=== PATIENT | male | born 1965 | race Caucasian/White ===

== ENCOUNTER 2017-11-17 08:24 | Emergency (ER) | payer OTHER ==
[~2017-11-17] VITALS: Ht 185.4 cm; Wt 88.5 kg
[~2017-11-17 08:24] MED LIST: ATENOLOL50 M1 PO; CALCIUM + D 6001 TAB PO; CIPRO 500MG TA500 MG PO; FAMOTIDINE20 M1 PO; FLOMAX(MONOGRA0.4 MG PO; LISINOPRIL-HCT1 EAC1 PO; LISINOPRIL20 M1 PO; LISINOPRIL20 MG PO; MAGNESIUM OXID400 M1 PO; MEN'S MULTIVI200 MCG PO; MOTRIN800 MG PO; MULTIVITAMIN1 TAB PO; OMEPRAZOLE20 M2 PO; PERCOCET 325 MG1 TA2 PO; VITAMIN C500 M3 PO; ZOFRAN 4 MG TABL4 MG PO
--- NOTE | 2017-11-17 08:27 | ED SYNCOPE COMPLAINT ---
History of Present Illness General Chief Complaint: Syncope and Near-Syncope Stated Complaint: SYNCOPE Source: patient, RAPID RESPONSE TEAM Exam Limitations: clinical condition Vital Signs & Intake/Output Vital Signs & Intake/Output Vital Signs Date Time Temp Pulse Resp B/P B/P Pulse O2 O2 Flow FiO2 Mean Ox Delivery Rate 11/17 1040 97.8 90 18 145/97 99 Room Air 11/17 1035 90 145/97 11/17 0835 99 Room Air 11/17 0829 96.2 80 18 140/96 99 Room Air Allergies Coded Allergies: Sulfa (Sulfonamide Antibiotics) (Severe, RASH 08/26/16) Reconcile Medications Alprazolam 0.5 MG TABLET 1 TAB PO BIDP PRN ANXIETY (Reported) Ascorbate Calcium (Vitamin C) 500 MG TABLET 1-2 TAB PO DAILY VITAMIN SUPPORT (Reported) Atenolol 50 MG TABLET 1 TAB PO DAILY HTN (Reported) Cetirizine HCl (Zyrtec) 10 MG TABLET 1 TAB PO DAILY ALLERGIES (Reported) Cholecalciferol (Vitamin D3) 1,000 UNIT TABLET 1 TAB PO DAILY VITAMIN SUPPORT (Reported) Citalopram Hydrobromide (Citalopram HBr) 20 MG TABLET 1 TAB PO DAILY MENTAL HEALTH (Reported) Cyanocobalamin (Vitamin B-12) 1,000 MCG TABLET 1 TAB PO DAILY VITAMIN SUPPORT (Reported) Folic Acid/Multivit-Minerals (Men's Multivitamin Gummies) 200 MCG TAB.CHEW 2 CAP PO DAILY SUPPLEMENT (Reported) Lisinopril 20 MG TABLET 20 MG PO DAILY HTN Magnesium Oxide 400 MG TABLET 400 MG PO BID SUPPLEMENT Omeprazole 20 MG CAPSULE.DR 1 CAP PO DAILY GERD (Reported) Trazodone HCl 50 MG TABLET 1-2 TAB PO QPM SLEEP (Reported) Triage Nurses Notes Reviewed? yes Timing: single episode today Precipitating Factors: FEELING NAUSEATED, LIGHTHEADED, STRESSFUL INTERACTION Episode Description: PER HPI Loss of Consciousness: brief (seconds) HPI: This is a 52-year-old male this is a 52-year-old male with history of hypertension, 2 previous syncopal episodes in the setting of volume depletion and hypomagnesemia who presents as a rapid response from the third floor of the hospital. Patient states that he has been feeling nauseous and unwell for several weeks now. He states he took us several days off of work secondary to lack of heat in the house and the snowstorm. This morning he had a stressful interaction with a staff member and after that patient was reported to have syncopized. He does not remember passing out but remembers feeling very nauseous. Patient reports eating and drinking much less than usual. He wakes up in the morning feeling nauseous. He does admit to 3 glasses of alcohol at night. No history of withdrawal seizures. Patient did not these this morning. He admits to feeling anxious and depressed, his daughters about to go back to college which has made him very depressed. He started Celexa back in August which he attributes his chronic nausea to. He is on twice a day supplementation for magnesium. He states he is consistent with all the medications. Past History Travel History Traveled to [place] past 21 day No Medical History Any Pertinent Medical History? see below for history Neurological: NONE EENT: NONE Cardiovascular: NONE (syncope/near-syncope), hypertension Respiratory: NONE Gastrointestinal: GERD Hepatic: NONE Renal: kidney cyst Musculoskeletal: chronic back pain Psychiatric: NONE Endocrine: NONE Blood Disorders: NONE Cancer(s): NONE BUSINESS TRAINER/Reproductive: NONE History of MRSA: No History of VRE: No History of CDIFF: No Influenza Vaccine: 08/12/16 Surgical History Surgical History: hernia repair-inguinal Psychosocial History Who do you live with Spouse What is your primary language Slovak Tobacco Use: Quit >30 days ago ETOH Use: alcoholic Illicit Drug Use: denies illicit drug use Family History Comment: HTN, SISTER CVA (DRUGS/ALCOHOL) Hx Contributory? Yes Review of Systems Review of Systems Constitutional: Denies: chills, fever. EENTM: Reports: no symptoms. Respiratory: Denies: cough, short of breath. Cardiovascular: Denies: chest pain, palpitations. GI: Reports: nausea. Denies: abdominal pain, vomiting. Genitourinary: Denies: discharge, dysuria, frequency, hematuria. Musculoskeletal: Denies: back pain. Skin: Reports: no symptoms. Neurological/Psychological: Reports: ataxia, depressed, emotional problems. All Other Systems: Reviewed and Negative Physical Exam Physical Exam General Appearance: well developed/nourished, alert, awake, anxious, mild distress, moderate distress Head: atraumatic, normal appearance Eyes: Bilateral: normal appearance, PERRL, EOMI. Ears, Nose, Throat: normal pharynx, hearing grossly normal Neck: normal inspection, supple, full range of motion Respiratory: normal breath sounds, chest non-tender, no respiratory distress Cardiovascular: regular rate/rhythm, normal peripheral pulses Gastrointestinal: soft, non-tender Back: normal inspection, normal range of motion Extremities: normal inspection, normal capillary refill, normal range of motion, no edema Psychiatric: awake, alert, oriented x 3 Cranial Nerves: normal hearing, normal speech, PERRL Coordination/Gait: normal finger to nose, normal gait Skin: intact, normal color, warm/dry Core Measures ACS in differential dx? Yes CVA/TIA Diagnosis: No Sepsis Present: No Sepsis Focused Exam Completed? No Progress Differential Diagnosis: AMI, aortic dissection, aortic valve, drug induced syncope, orthostatic syncope, pulmonary embolus, ROLY, DEHYDRATION, HYPOMAGNESIEMIA, ALCOHOL WITHDRAWAL, anxiety, stres reaction Plan of Care: Orders Procedure Date/time Status Heart Healthy Diet 11/17 L Active TROPONIN LEVEL 11/17 1230 Complete EKG 11/17 1230 Active Add-on Test (ER Only) 11/17 837 Active CIWA 11/17 837 Active MISTAKE 11/17 830 Active Telemetry/Bevel Face Stoner And Polisher 11/17 830 Active URINALYSIS 11/17 830 Active TROPONIN LEVEL 11/17 830 Complete PARTIAL THROMBOPLASTIN TIME 11/17 830 Complete PROTHROMBIN TIME 11/17 830 Complete MAGNESIUM 11/17 830 Complete ETHANOL 11/17 830 Complete COMPREHENSIVE METABOLIC PANEL 11/17 830 Complete CBC WITHOUT DIFFERENTIAL 11/17 830 Complete EKG 11/17 825 Active Laboratory Tests 11/17/17 1233: Troponin I < 0.01 11/17/17 0842: Anion Gap 17 H, Estimated GFR > 60, BUN/Creatinine Ratio 11.4, Glucose 99, Calcium 9.9, Magnesium 1.4 L, Total Bilirubin 0.3, AST 106 H, ALT 126 H, Alkaline Phosphatase 76, Troponin I < 0.01, Total Protein 7.6, Albumin 4.5, Globulin 3.1, Albumin/Globulin Ratio 1.5, PT 9.8, INR 0.93, APTT 27, CBC w Diff NO MAN DIFF REQ, RBC 4.57 L, MCV 99.5 H, MCH 33.3 H, RDW 13.9, MPV 8.6, Gran % 43.2, Lymphocytes % 42.8, Monocytes % 10.4 H, Eosinophils % 2.1, Basophils % 1.5, Absolute Granulocytes 2.5, Absolute Lymphocytes 2.5, Absolute Monocytes 0.6 , Absolute Eosinophils 0.1, Absolute Basophils 0.1, PUBS MCHC 33.5, Serum Alcohol 43.0 EKG, TELE MONITOR, ORTHOSTATICS, LABS SENT. INITIAL TROPONIN NEGATIVE. PATIENT DOES NOT WANT TO STAY IN HOSPITAL. AGREES TO SECOND TROPONIN AND TO WAIT FOR EVALUATION BY DR CORBIN IN THE ED 12:41 pm patient evaluated by dr corbin in ED, also recommends 23 hr observation to tele. Second troponin pending. Repeat EKG unchanged. PATIENT HAS MADE DECISION TO GO HOME AND LEAVE AMA. HE REPORTS FEELING BETTER AND CANNOT STAY BECAUSE HIS DAUGHTER WILL ONLY BE HOME FOR 2 MORE DAYS. HE STATES THAT HE WILL RETURN TO THE HOSPITAL IMMEDIATELY IF HE IS FEELING WORSE. PATIENT WAS AMBULATORY TO THE BATHROOM WITH STEADY GAIT, DOES NOT FEEL DIZZY OR UNSTEADY. Diagnostic Imaging: Viewed by Me: Radiology Read, CT Scan. Discussed w/RAD: Radiology Read, CT Scan. Radiology Impression: PATIENT: SHAKA JUAREZ PRESENT AGE: 52 PATIENT ACCOUNT NO: [id number] : 65 LOCATION: [facility] ORDERING PHYSICIAN: Anabela Corona MD SERVICE DATE: 11/17/17 EXAM TYPE: CAT - CT CERV SPINE WO IV CONTRAST; CT HEAD WO IV CONTRAST EXAMINATION: CT HEAD WITHOUT CONTRAST CT CERVICAL SPINE WITHOUT CONTRAST CLINICAL INFORMATION: Rule out fracture. Syncope. COMPARISON: None TECHNIQUE: CT of the head and cervical spine were performed without intravenous contrast. Multiplanar reformats were rendered and reviewed. DLP: 1010 mGy-cm. FINDINGS: CT head: There is no intracranial hemorrhage, extra-axial collection, or calvarial fracture. There is no intracranial mass, mass effect, or CT evidence of large territory infarction. The ventricles are normal in size. The paranasal sinuses are essentially clear. The mastoids and middle ear cavities are clear. CT cervical spine: The cervical vertebral body heights are maintained. The craniovertebral junction is intact. There is trace retrolisthesis of C3 on C4 and C5 on C6 related to degenerative facet arthropathy. No traumatic subluxation is seen. In the visualized upper thoracic spine there is mild superior endplate depression at T1 and T2 compatible with age indeterminant compression fractures. There is no posterior retropulsion or involvement of posterior elements. There are multilevel degenerative changes with intervertebral disc height loss, endplate spurring, and uncovertebral and facet arthropathy. Disc height loss greatest at C3-C4 and C5-C6. There is no high-grade osseous encroachment on the spinal canal. There is varying degrees of neural foraminal stenosis which appears most advanced at C3- C4 and C5-C6. The visualized lung apices are clear. There are bilateral palatine tonsilloliths. No neck mass is seen. There are nonenlarged lymph nodes throughout the bilateral cervical chains. IMPRESSION: CT head: No acute intracranial abnormality identified. CT cervical spine: 1. No cervical spine fracture or traumatic malalignment. 2. Degenerative appearing trace retrolisthesis of C3 on C4 and C5 on C6. 3. Multilevel degenerative changes throughout the cervical spine without high-grade osseous encroachment on the spinal canal or neural foramina. 4. Age-indeterminate mild superior endplate compression fractures at T1 and T2. DICTATED BY: Genny Conn MD DATE/TIME DICTATED:11/17/17921 RELIABILITY TECHNICIAN:HILARIA DATE/TIME TRANSCRIBED:921 CONFIDENTIAL, DO NOT COPY WITHOUT APPROPRIATE AUTHORIZATION. < Electronically signed in Other Vendor System> SIGNED BY: Genny Conn MD 11/17/17938 CXR Impression: PATIENT: SHAKA JUAREZ PRESENT AGE: 52 PATIENT ACCOUNT NO: [id number] : 65 LOCATION: [facility] ORDERING PHYSICIAN: Anabela Corona MD SERVICE DATE: 11/17/17 EXAM TYPE: RAD - XRY-PORTABLE CHEST XRAY EXAMINATION: XR PORTABLE CHEST CLINICAL INFORMATION: Rule out wide mediastinum. Chest pain and syncope. COMPARISON: Chest radiograph 08/26/2016. TECHNIQUE: Portable frontal view of the chest was obtained. FINDINGS: The lungs are clear without consolidation, edema, or effusion. There is no pneumothorax. The cardiomediastinal contours appear stable compared with 08/26/2016. The mediastinum is not abnormally widened. The osseous structures are grossly intact. IMPRESSION: No acute abnormality in the chest. DICTATED BY: Genny Conn MD DATE/TIME DICTATED:11/17/17919 RELIABILITY TECHNICIAN:HILARIA DATE/TIME TRANSCRIBED:11/17/17919 CONFIDENTIAL, DO NOT COPY WITHOUT APPROPRIATE AUTHORIZATION. <Electronically signed in Other Vendor System> SIGNED BY: Genny Conn MD 11/17/17924 Initial ED EKG: NSR, 80 BPM, SINUS RHYTHM, PROMINENT T WAVEW V3-V6 Repeat EKG: unchanged Departure Departure Time of Disposition: 1352 Disposition: LEFT AGAINST MEDICAL ADVICE Condition: Stable Clinical Impression Primary Impression: Syncope and collapse Referrals: Jhonatan TREJO,Yogi (PCP/Family) Additional Instructions: PLEASE FOLLOW UP WITH OUTPATIENT TESTING WITH DR CORBIN REGARDING YOUR CHEST PAIN AND PASSING OUT EPISODE RETURN IMMEDIATELY TO THE ER FOR ANY CHANGING OR WORSENING SYMPTOMS Departure Forms: Customer Survey General Discharge Information
[2017-11-17] MEDS ORDERED: VITAMIN C500 M6 PO (08:52)
[2017-11-17] MEDS ORDERED: VITAMIN D31000 UNI2 PO (08:54)
[2017-11-17] MEDS ORDERED: VITAMIN B-121000 MC3 PO (08:54)
[2017-11-17] MEDS ORDERED: ZYRTEC10 M3 PO (08:55)
[2017-11-17] MEDS ORDERED: CITALOPRAM HBR20 MG PO (08:55)
[2017-11-17] MEDS ORDERED: ALPRAZOLAM0.5 M4 PO (08:56)
[2017-11-17] MEDS ORDERED: TRAZODONE HCL50 M1 PO (08:56)
[2017-11-17 08:58] LABS: ABSOLUTE BASOPHIL COUNT 0.1 /CUMM (0.0-0.2); ABSOLUTE EOSINOPHIL COUNT 0.1 /CUMM (0.0-0.7); ABSOLUTE GRANULOCYTE CT 2.5 /CUMM (1.4-6.5); ABSOLUTE LYMPH COUNT 2.5 /CUMM (1.2-3.4); ABSOLUTE MONOCYTE COUNT 0.6 /CUMM (0.10-0.60); BASOPHIL % 1.5 % (0.0-2.0); EOSINOPHIL % 2.1 % (0-5); GRANULOCYTE % 43.2 % (42.2-75.2); HEMATOCRIT 45.4 % (42-52); MEAN CORPUSCULAR HGB 33.3 PG (27.0-31.0); MEAN CORPUSCULAR HGB CONC 33.5 G/DL (33.0-37.0); MEAN CORPUSCULAR VOLUME 99.5 FL (80.0-94.0); MEAN PLATELET VOLUME 8.6 FL (7.4-10.4); PLATELET COUNT 306 /CUMM (130-400); RBC DISTRIBUTION WIDTH 13.9 % (11.5-14.5); RED BLOOD CELL CT 4.57 /CUMM (4.70-6.10); WHITE BLOOD CELL COUNT 5.8 /CUMM (4.8-10.8)
[2017-11-17 09:01] LABS: PT 9.8 SEC (9.4-12.5); PTT 27 SEC (25-37)
--- NOTE | 2017-11-17 09:25 | RADIOLOGY REPORT ---
EXAMINATION: XR PORTABLE CHEST CLINICAL INFORMATION: Rule out wide mediastinum. Chest pain and syncope. COMPARISON: Chest radiograph 08/26/2016. TECHNIQUE: Portable frontal view of the chest was obtained. FINDINGS: The lungs are clear without consolidation, edema, or effusion. There is no pneumothorax. The cardiomediastinal contours appear stable compared with 08/26/2016. The mediastinum is not abnormally widened. The osseous structures are grossly intact. IMPRESSION: No acute abnormality in the chest.
--- NOTE | 2017-11-17 09:39 | CT SCAN REPORT ---
EXAMINATION: CT HEAD WITHOUT CONTRAST CT CERVICAL SPINE WITHOUT CONTRAST CLINICAL INFORMATION: Rule out fracture. Syncope. COMPARISON: None TECHNIQUE: CT of the head and cervical spine were performed without intravenous contrast. Multiplanar reformats were rendered and reviewed. DLP: 1010 mGy-cm. FINDINGS: CT head: There is no intracranial hemorrhage, extra-axial collection, or calvarial fracture. There is no intracranial mass, mass effect, or CT evidence of large territory infarction. The ventricles are normal in size. The paranasal sinuses are essentially clear. The mastoids and middle ear cavities are clear. CT cervical spine: The cervical vertebral body heights are maintained. The craniovertebral junction is intact. There is trace retrolisthesis of C3 on C4 and C5 on C6 related to degenerative facet arthropathy. No traumatic subluxation is seen. In the visualized upper thoracic spine there is mild superior endplate depression at T1 and T2 compatible with age indeterminant compression fractures. There is no posterior retropulsion or involvement of posterior elements. There are multilevel degenerative changes with intervertebral disc height loss, endplate spurring, and uncovertebral and facet arthropathy. Disc height loss greatest at C3-C4 and C5-C6. There is no high-grade osseous encroachment on the spinal canal. There is varying degrees of neural foraminal stenosis which appears most advanced at C3-C4 and C5-C6. The visualized lung apices are clear. There are bilateral palatine tonsilloliths. No neck mass is seen. There are nonenlarged lymph nodes throughout the bilateral cervical chains. IMPRESSION: CT head: No acute intracranial abnormality identified. CT cervical spine: 1. No cervical spine fracture or traumatic malalignment. 2. Degenerative appearing trace retrolisthesis of C3 on C4 and C5 on C6. 3. Multilevel degenerative changes throughout the cervical spine without high-grade osseous encroachment on the spinal canal or neural foramina. 4. Age-indeterminate mild superior endplate compression fractures at T1 and T2.
[2017-11-17 14:12] VITALS: BP 158/68
--- NOTE | 2017-11-17 17:43 | Cons- Cardiology ---
General Information and HPI Consulting Request Date of Consult: 11/17/17 Requested By: Mr. 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 Mr. Shah states that he has been under a tremendous amount of stress both at his workplace and at home and recovered from a flulike illness recently and began experiencing recurrent episodes of substernal and back discomfort described as a "congested" sensation of less than 5/10 intensity with intermittent associated shakiness and nausea the day following his shoveling snow after the recent snowstorm on (11/13/2017). The discomfort began on Friday (11/14/2017) late afternoon and lasted approximately one hour before subsiding. He sought no medical attention at that time think the discomfort was on a musculoskeletal basis. On Friday (11/15/2017) discomfort began after he awakened at around 9 AM and persisted for "a couple" of hours before subsiding. Again, he sought medical attention. On Friday (11/16/2017) he "took it easy" and felt okay. He went to bed early at around 9:30 PM and felt okay at work initially, then began feeling lightheaded and shaky. The next thing he knew hospital staff were standing over him after a rapid response had been called. He felt unwell after "coming to", but denied any chest discomfort, palpitations, shortness breath, etc. He was last hospitalized at [place] 08/25-08/26/2016 following what was felt to be a vasovagal syncopal episode. Reason for Consult: Syncope. Source of Information: patient, old records Exam Limitations: no limitations Allergies/Medications Allergies: Coded Allergies: Sulfa (Sulfonamide Antibiotics) (Severe, RASH 08/26/16) Home Med List: Alprazolam 0.5 MG TABLET 1 TAB PO BIDP PRN ANXIETY (Reported) Ascorbate Calcium (Vitamin C) 500 MG TABLET 1-2 TAB PO DAILY VITAMIN SUPPORT (Reported) Atenolol 50 MG TABLET 1 TAB PO DAILY HTN (Reported) Cetirizine HCl (Zyrtec) 10 MG TABLET 1 TAB PO DAILY ALLERGIES (Reported) Cholecalciferol (Vitamin D3) 1,000 UNIT TABLET 1 TAB PO DAILY VITAMIN SUPPORT (Reported) Citalopram Hydrobromide (Citalopram HBr) 20 MG TABLET 1 TAB PO DAILY MENTAL HEALTH (Reported) Cyanocobalamin (Vitamin B-12) 1,000 MCG TABLET 1 TAB PO DAILY VITAMIN SUPPORT (Reported) Folic Acid/Multivit-Minerals (Men's Multivitamin Gummies) 200 MCG TAB.CHEW 2 CAP PO DAILY SUPPLEMENT (Reported) Lisinopril 20 MG TABLET 20 MG PO DAILY HTN Magnesium Oxide 400 MG TABLET 400 MG PO BID SUPPLEMENT Omeprazole 20 MG CAPSULE.DR 1 CAP PO DAILY GERD (Reported) Trazodone HCl 50 MG TABLET 1-2 TAB PO QPM SLEEP (Reported) Review of Systems Review of Systems: A 14 point system review was obtained and was noncontributory, other than as above. Past History Travel History Traveled to [place] past 21 day No Medical History Neurological: NONE EENT: NONE Cardiovascular: NONE (syncope/near-syncope), hypertension Respiratory: NONE Gastrointestinal: GERD Hepatic: NONE Renal: kidney cyst Musculoskeletal: chronic back pain Psychiatric: NONE Endocrine: NONE Blood Disorders: NONE Cancer(s): NONE ACADEMIC INTERVENTIONIST/Reproductive: NONE Surgical History Surgical History: hernia repair-inguinal Psychosocial History ETOH Use: alcoholic Illicit Drug Use: denies illicit drug use Exam & Diagnostic Data Vital Signs and I&O Vital Signs Date Time Temp Pulse Resp B/P B/P Pulse O2 O2 Flow FiO2 Mean Ox Delivery Rate 11/17 1412 98.2 76 18 158/68 98 Room Air 11/17 1040 97.8 90 18 145/97 99 Room Air 11/17 1035 90 145/97 11/17 0835 99 Room Air 11/17 0829 96.2 80 18 140/96 99 Room Air Intake & Output 11/17 1600 11/17 0800 11/17 0000 11/16 1600 11/16 0800 11/16 0000 Intake Total Output Total Balance Patient 195 lb Weight Weight Reported by Patient Measurement Method Physical Exam: Well-developed, well-nourished malaise male in no acute distress. Vital signs: See above. HEENT: Normocephalic, atraumatic, EOMI, slightly dry mucous membranes. Neck: No JVD, no bruits. Lungs: Clear to auscultation bilaterally. Heart: S1, S2 with no murmur, gallop, or rub appreciated. PMI fifth ICS at [facility]. Abdomen: Soft, nontender, positive bowel sounds. Extremities: No edema. Labs/Momo Results: Laboratory Tests 11/17 11/17 1233 0842 Chemistry Sodium (137 - 145 mmol/L) 141 Potassium (3.5 - 5.1 mmol/L) 5.3 H Chloride (98 - 107 mmol/L) 101 Carbon Dioxide (22 - 30 mmol/L) 22 Anion Gap (5 - 16) 17 H BUN (9 - 20 mg/dL) 8 L Creatinine (0.7 - 1.2 mg/dL) 0.7 Estimated GFR (>60 ml/min) > 60 BUN/Creatinine Ratio (7 - 25 %) 11.4 Glucose (65 - 99 mg/dL) 99 Calcium (8.4 - 10.2 mg/dL) 9.9 Magnesium (1.6 - 2.3 mg/dL) 1.4 L Total Bilirubin (0.2 - 1.3 mg/dL) 0.3 AST (17 - 59 U/L) 106 H ALT (21 - 72 U/L) 126 H Alkaline Phosphatase (< 127 U/L) 76 Troponin I (<0.11 ng/ml) < 0.01 < 0.01 Total Protein (6.3 - 8.2 g/dL) 7.6 Albumin (3.5 - 5.0 g/dL) 4.5 Globulin (1.9 - 4.2 gm/dL) 3.1 Albumin/Globulin Ratio (1.1 - 2.2 %) 1.5 Coagulation PT (9.4 - 12.5 SEC) 9.8 INR (0.90 - 1.17) 0.93 APTT (25 - 37 SEC) 27 Hematology CBC w Diff NO MAN DIFF REQ WBC (4.8 - 10.8 /CUMM) 5.8 RBC (4.70 - 6.10 /CUMM) 4.57 L Hgb (14.0 - 18.0 G/DL) 15.2 Hct (42 - 52 %) 45.4 MCV (80.0 - 94.0 FL) 99.5 H MCH (27.0 - 31.0 PG) 33.3 H RDW (11.5 - 14.5 %) 13.9 Plt Count (130 - 400 /CUMM) 306 MPV (7.4 - 10.4 FL) 8.6 Gran % (42.2 - 75.2 %) 43.2 Lymphocytes % (20.5 - 51.1 %) 42.8 Monocytes % (1.7 - 9.3 %) 10.4 H Eosinophils % (0 - 5 %) 2.1 Basophils % (0.0 - 2.0 %) 1.5 Absolute Granulocytes (1.4 - 6.5 /CUMM) 2.5 Absolute Lymphocytes (1.2 - 3.4 /CUMM) 2.5 Absolute Monocytes (0.10 - 0.60 /CUMM) 0.6 Absolute Eosinophils (0.0 - 0.7 /CUMM) 0.1 Absolute Basophils (0.0 - 0.2 /CUMM) 0.1 PUBS MCHC (33.0 - 37.0 G/DL) 33.5 Toxicology Serum Alcohol (<10 MG/DL) 43.0 Diagnostic Data EKG Results 11/17/2017 sinus rhythm and within normal limits. CXR Results 11/17/2017: No acute cardiopulmonary process. Other Results CT head 11/17/2017: No acute intracranial abnormality identified. CT cervical spine 11/17/2017: 1. No cervical spine fracture or traumatic malalignment. 2. Degenerative appearing trace retrolisthesis of C3 on C4 and C5 on C6. 3. Multilevel degenerative changes throughout the cervical spine without high- grade osseous encroachment on the spinal canal or neural foramina. 4. Age-indeterminate mild superior endplate compression fractures at T1 and T2. 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 Recommended to Mr. Shah that he be admitted for at least a 23 hour period of observation during which we could have him undergo a stress test to help exclude an ischemic basis for his chest discomfort which could be on a musculoskeletal basis. This would also allow us to exclude any significant arrhythmias or conduction abnormalities on telemetry. He understands the rationale behind our recommendation that he be placed in observation, but thinks he might leave against our medical recommendations. Consult Acknowledgment - Thank you for your consult request.
== END 2017-11-17 14:13 | disposition left against medical advice (07) ==
LOC: ERH 08:24
PROVIDERS: Emergency Medicine
DX: R55 Syncope and collapse (principal)
CPT/HCPCS: 71045; 93005; 93010; 96374; G0480; J0696